=== PATIENT | female | born 1950 | race American Indian/Alaskan Native ===

== ENCOUNTER 2018-08-27 19:45 | Emergency (ER) | payer MEDICARE, MEDICAID ==
[~2018-08-27] VITALS: Ht 165.1 cm; Wt 98.0 kg
[~2018-08-27 19:45] MED LIST: ALBU18HF2 INH; AMIT-50 PO; ASCO500C15 PO; ATOR40TA PO; CLIN150C8 PO; COL100C PO; HYDR-3686 PO; LEVO150T8 PO; MULT-38 PO; PARO20TA6 PO; ZES10T PO
[2018-08-27 19:53] VITALS: BP 111/69
[2018-08-27] MEDS ORDERED: predniSONE 20 mg tablet PO ONE (20:45)
[2018-08-27] MEDS ORDERED: ipratropium/albuterol 3ml nebule NEB ONE (20:45)
[2018-08-27] MEDS ORDERED: AZIT250T2 PO (20:46)
[2018-08-27] MEDS ORDERED: ALBU6.7H INH (20:46)
[2018-08-27] MEDS ORDERED: PRED20TA PO (20:46)
[2018-08-27] MEDS ORDERED: ketorolac trometh inj. 60 MG/2 ML VIAL IM ONE (21:35)
[2018-08-28] MEDS ORDERED: BUSP5TAB3 PO (21:23)
[2018-08-28] MEDS ORDERED: HYDR-4353 PO (21:23)
[2018-08-29] MEDS ORDERED: CHOL400T14 PO (11:45)
[2018-08-29] MEDS ORDERED: VITA400C19 PO (11:45)
[2018-08-29] MEDS ORDERED: IBUP-1985 PO (11:46)
[2018-08-29] MEDS ORDERED: HYDR-3973 PO (11:46)
[2018-08-29] MEDS ORDERED: ALBU18HF2 INH (11:47)
== END 2018-08-27 22:10 | disposition home or self-care (01) ==
LOC: ER 19:45
DX: J40 Bronchitis, not specified as acute or chronic (principal); E11.9 Type 2 diabetes mellitus without complications; G89.29 Other chronic pain; F17.210 Nicotine dependence, cigarettes, uncomplicated; Z59.0 Homelessness; Z98.890 Other specified postprocedural states; Z87.01 Personal history of pneumonia (recurrent); Z79.899 Other long term (current) drug therapy; Z88.0 Allergy status to penicillin; Z88.5 Allergy status to narcotic agent; Z88.8 Allergy status to other drugs, medicaments and biological substances
CPT/HCPCS: 94640; 94760; 96372; 99284; J1885; J7512

== ENCOUNTER 2019-01-03 18:24 | Emergency (ER) | payer MEDICARE, MEDICAID ==
[~2019-01-03] VITALS: Ht 165.1 cm; Wt 101.0 kg
[~2019-01-03 18:24] MED LIST changes: -AMIT-50 PO; +BENZ-16 PO; +CHOL400T14 PO; -CLIN150C8 PO; -HYDR-3686 PO; +HYDR-3973 PO; +IBUP-1985 PO; +LACT1CAP26 PO; +LINE600T14 PO; -PARO20TA6 PO; +VITA400C19 PO; -ZES10T PO
[2019-01-03 20:32] VITALS: BP 108/62
[2019-01-03 20:36] LABS: ALANINE AMINOTRANSFERASE 31 U/L (12-78); ALBUMIN/GLOBULIN RATIO 0.9 (1.1-1.5); ALKALINE PHOSPHATASE 88 IU/L (46-116); ANION GAP 8 (8-16); ASPARTATE AMINO TRANSFERASE 10 U/L (10-37); BILIRUBIN,TOTAL 0.1 MG/DL (0.1-1.0); BLOOD UREA NITROGEN 13 MG/DL (7-18); BUN/CREATININE RATIO 13.1 (6.6-38.0); CALCIUM 10.3 MG/DL (8.5-10.1); CHLORIDE 110 MMOL/L (99-107); CREATININE 0.99 MG/DL (0.40-0.90); POTASSIUM 4.3 MMOL/L (3.5-5.1); SODIUM 142 MMOL/L (135-145); TOTAL CARBON DIOXIDE 23.6 MMOL/L (24-32); TOTAL PROTEIN 6.5 G/DL (6.4-8.2); eGFR 56 ML/MIN
[2019-01-03 20:40] LABS: GLUCOSE 96 MG/DL (70-104)
[2019-01-03 20:49] LABS: BASOPHILS # (AUTO) 0.1 X10'3 (0-0.2); BASOPHILS % (AUTO) 0.8 % (0-1); EOSINOPHILS # (AUTO) 0.4 X10'3 (0-0.9); EOSINOPHILS % (AUTO) 5.6 % (0-6); HEMATOCRIT 42.2 % (35.0-45.0); LYMPHOCYTES # (AUTO) 2.3 X10'3 (1.1-4.8); LYMPHOCYTES % (AUTO) 33.9 % (21-51); MEAN CORPUSCULAR HEMOGLOBIN 29.3 PG (27.0-31.0); MEAN CORPUSCULAR HGB CONC 33.2 g/dL (33.0-36.5); MEAN CORPUSCULAR VOLUME 88.5 FL (78-98); MEAN PLATELET VOLUME 10.1 FL (7.4-10.4); MONOCYTES # (AUTO) 0.3 X10'3 (0-0.9); MONOCYTES % (AUTO) 5.1 % (2-12); NEUTROPHILS # (AUTO) 3.7 X10'3 (1.8-7.7); NEUTROPHILS % (AUTO) 54.6 % (42-75); PLATELET COUNT 205 X10'3 (140-440); RED BLOOD COUNT 4.77 X10'6 (4.20-5.60); RED CELL DISTRIBUTION WIDTH 13.6 % (11.5-14.5); WHITE BLOOD COUNT 6.8 X10'3 (4.5-11.0)
[2019-01-03] MEDS ORDERED: DOXY100C2 PO (21:02)
[2019-01-03] MEDS ORDERED: DOXYCYCLINE 100MG CAPSULE PO STA (21:10)
== END 2019-01-03 21:21 | disposition home or self-care (01) ==
LOC: ER 18:25
DX: L03.116 Cellulitis of left lower limb (principal); J44.9 Chronic obstructive pulmonary disease, unspecified; E11.9 Type 2 diabetes mellitus without complications; E07.9 Disorder of thyroid, unspecified; G89.29 Other chronic pain; Z87.442 Personal history of urinary calculi; Z98.890 Other specified postprocedural states; Z59.0 Homelessness; Z88.0 Allergy status to penicillin; Z88.5 Allergy status to narcotic agent; Z88.6 Allergy status to analgesic agent; Z79.2 Long term (current) use of antibiotics; Z79.899 Other long term (current) drug therapy
CPT/HCPCS: 36415; 80053; 83605; 85025; 99284

== ENCOUNTER 2019-12-24 16:32 | Emergency (ER) | payer MEDICARE, MEDICAID ==
[~2019-12-24] VITALS: Ht 163.8 cm; Wt 94.0 kg
[2019-12-24 19:21] VITALS: BP 29/83
[2019-12-24] MEDS ORDERED: CEPH-572 PO (20:08)
== END 2019-12-24 20:10 | disposition home or self-care (01) ==
LOC: ER 16:33
DX: L72.3 Sebaceous cyst (principal); J44.9 Chronic obstructive pulmonary disease, unspecified; E11.9 Type 2 diabetes mellitus without complications; G89.29 Other chronic pain; Z85.9 Personal history of malignant neoplasm, unspecified; Z60.2 Problems related to living alone; Z59.0 Homelessness; Z98.890 Other specified postprocedural states; Z88.0 Allergy status to penicillin; Z88.5 Allergy status to narcotic agent; Z79.899 Other long term (current) drug therapy
CPT/HCPCS: 10060; 99283

== ENCOUNTER 2020-11-10 11:09 | Emergency (ER) | payer MEDICARE, MEDICAID ==
[~2020-11-10] VITALS: Ht 163.8 cm; Wt 100.0 kg
[~2020-11-10 11:09] MED LIST changes: -ASCO500C15 PO; +ASCO500C18 PO; +CEPH-572 PO; +VITA-336 PO; -VITA400C19 PO
[2020-11-10 11:27] VITALS: BP 115/89
[2020-11-10] MEDS ORDERED: acetaminophen 325mg tablet PO ONE (12:10)
== END 2020-11-10 12:41 | disposition home or self-care (01) ==
LOC: ER 11:10
DX: R10.30 Lower abdominal pain, unspecified (principal); G89.29 Other chronic pain; J44.9 Chronic obstructive pulmonary disease, unspecified; E11.9 Type 2 diabetes mellitus without complications; Z87.442 Personal history of urinary calculi; Z87.01 Personal history of pneumonia (recurrent); Z85.9 Personal history of malignant neoplasm, unspecified; Z98.890 Other specified postprocedural states; Z60.2 Problems related to living alone; Z88.0 Allergy status to penicillin; Z88.5 Allergy status to narcotic agent; Z88.8 Allergy status to other drugs, medicaments and biological substances; Z79.2 Long term (current) use of antibiotics; Z79.899 Other long term (current) drug therapy
CPT/HCPCS: 99284

== ENCOUNTER 2020-12-27 11:19 | Day surgery (SDC) | payer MEDICARE, MEDICAID ==
[2020-12-08 13:53] LABS: BASOPHILS % (AUTO) 0.5 % (0-1); EOSINOPHILS # (AUTO) 0.2 X10'3 (0-0.9); EOSINOPHILS % (AUTO) 3.3 % (0-6); HEMATOCRIT 49.3 % (35.0-45.0); LYMPHOCYTES # (AUTO) 1.1 X10'3 (1.1-4.8); MEAN CORPUSCULAR HGB CONC 32.5 g/dL (33.0-36.5); MEAN CORPUSCULAR VOLUME 89.2 FL (78-98); MEAN PLATELET VOLUME 10.4 FL (7.4-10.4); MONOCYTES # (AUTO) 0.4 X10'3 (0-0.9); MONOCYTES % (AUTO) 4.8 % (2-12); NEUTROPHILS # (AUTO) 5.6 X10'3 (1.8-7.7); NEUTROPHILS % (AUTO) 76.4 % (42-75); PLATELET COUNT 153 X10'3 (140-440); RED BLOOD COUNT 5.53 X10'6 (4.20-5.60); RED CELL DISTRIBUTION WIDTH 14.3 % (11.5-14.5); WHITE BLOOD COUNT 7.3 X10'3 (4.5-11.0)
[2020-12-08 13:59] LABS: ALBUMIN 3.5 G/DL (3.4-5.0); ANION GAP 10 (8-16); BLOOD UREA NITROGEN 16 MG/DL (7-18); BUN/CREATININE RATIO 13.1 (6.6-38.0); CALCIUM 10.4 MG/DL (8.5-10.1); CHLORIDE 108 MMOL/L (99-107); CREATININE 1.22 MG/DL (0.40-0.90); GLUCOSE 161 MG/DL (70-104); POTASSIUM 3.9 MMOL/L (3.5-5.1); SODIUM 142 MMOL/L (135-145); TOTAL CARBON DIOXIDE 23.7 MMOL/L (24-32); eGFR 44 ML/MIN
[2020-12-08 14:03] LABS: PARTIAL THROMBOPLASTIN TIME 25 SECONDS (22-32)
[2020-12-27] VITALS (9 sets, daily range): BP systolic 101–128; BP diastolic 54–88
[~2020-12-27] VITALS: Ht 165.1 cm; Wt 100.9 kg
[2020-12-27] MEDS ORDERED: verapamil 2.5 mg/ml inj IV ONE (12:19)
[2020-12-27] MEDS ORDERED: midazolam 1 mg/ML 2ml injection ONE ×2 (12:19→13:35)
[2020-12-27] MEDS ORDERED: nitroGLYCERIN-Tridil 50MG/D5W 250 ML IV ONE (12:20)
[2020-12-27] MEDS ORDERED: iohexol 350MG/ML 100ml bottle IV ONE (12:20)
[2020-12-27] MEDS ORDERED: heparin 1,000unit/ml 10ml vial 10 ML ONE (12:20)
[2020-12-27] MEDS ORDERED: fentaNYL/PF 50MCG/1 ML 2ML syringe ONE (12:20)
[2020-12-27] MEDS ORDERED: LIDOcaine 1% (10mg/ml)w/preservative injection 20ml MDV ONE (12:20)
[2020-12-27] MEDS ORDERED: diphenhydrAMINE 25mg capsule PO PRN (12:35)
[2020-12-27] MEDS ORDERED: LORazepam 0.5 MG tablet PO PRN (12:35)
[2020-12-27] MEDS ORDERED: normal saline 1,000 ML IV SCH (12:35)
[2020-12-27 12:40] LABS: BASOPHILS # (AUTO) 0.1 X10'3 (0-0.2); BASOPHILS % (AUTO) 0.7 % (0-1); EOSINOPHILS # (AUTO) 0.2 X10'3 (0-0.9); EOSINOPHILS % (AUTO) 2.2 % (0-6); HEMATOCRIT 46.9 % (35.0-45.0); HEMOGLOBIN 15.3 g/dl (12.0-16.0); LYMPHOCYTES # (AUTO) 1.5 X10'3 (1.1-4.8); LYMPHOCYTES % (AUTO) 18.9 % (21-51); MEAN CORPUSCULAR HEMOGLOBIN 29.3 PG (27.0-31.0); MEAN CORPUSCULAR HGB CONC 32.7 g/dL (33.0-36.5); MEAN CORPUSCULAR VOLUME 89.5 FL (78-98); MONOCYTES # (AUTO) 0.5 X10'3 (0-0.9); MONOCYTES % (AUTO) 6.5 % (2-12); NEUTROPHILS # (AUTO) 5.8 X10'3 (1.8-7.7); NEUTROPHILS % (AUTO) 71.7 % (42-75); PLATELET COUNT 173 X10'3 (140-440); RED BLOOD COUNT 5.24 X10'6 (4.20-5.60); RED CELL DISTRIBUTION WIDTH 14.3 % (11.5-14.5); WHITE BLOOD COUNT 8.1 X10'3 (4.5-11.0)
[2020-12-27 12:49] LABS: ALBUMIN 3.3 G/DL (3.4-5.0); ANION GAP 10 (8-16); BLOOD UREA NITROGEN 19 MG/DL (7-18); BUN/CREATININE RATIO 17.3 (6.6-38.0); CALCIUM 9.7 MG/DL (8.5-10.1); CHLORIDE 108 MMOL/L (99-107); GLUCOSE 91 MG/DL (70-104); POTASSIUM 4.4 MMOL/L (3.5-5.1); SODIUM 143 MMOL/L (135-145); TOTAL CARBON DIOXIDE 25.3 MMOL/L (24-32); eGFR 49 ML/MIN
[2020-12-27 12:52] LABS: PARTIAL THROMBOPLASTIN TIME 24 SECONDS (22-32)
[2020-12-27] MEDS ORDERED: LIDOcaine/PRILOcaine 5gm cream TP ONE (13:00)
[2020-12-27] MEDS ORDERED: PARO30TA4 PO (13:08)
[2020-12-27] MEDS ORDERED: OXYC10TA47 PO (13:08)
[2020-12-27] MEDS ORDERED: ALBU18HF2 (13:08)
[2020-12-27] MEDS ORDERED: CYCL-1 PO (13:08)
[2020-12-27] MEDS ORDERED: LEVO137T19 PO (13:08)
[2020-12-27] MEDS ORDERED: TRAZ-251 PO (13:08)
[2020-12-27] MEDS ORDERED: ondansetron/PF 4mg/2ml inj IV PRN (14:10)
[2020-12-27] MEDS ORDERED: proCHLORperazine 10 MG/2 ml inj IV PRN (14:10)
[2020-12-27] MEDS ORDERED: OXAZEpam 15mg capsule PO PRN (14:10)
[2020-12-27] MEDS ORDERED: nitroGLYCERIN 0.4mg SUBLingual tab SL PRN (14:10)
== END 2020-12-27 17:00 | disposition home or self-care (01) ==
LOC: SSTAY O 11:19
PROVIDERS: ATTEND Internal Medicine Interventional Cardiology
DX: R94.39 Abnormal result of other cardiovascular function study (principal); R07.89 Other chest pain; I25.10 Atherosclerotic heart disease of native coronary artery without angina pectoris; J44.9 Chronic obstructive pulmonary disease, unspecified; E03.9 Hypothyroidism, unspecified; E66.9 Obesity, unspecified; Z68.37 Body mass index [BMI] 37.0-37.9, adult; E83.52 Hypercalcemia; E78.5 Hyperlipidemia, unspecified; F17.210 Nicotine dependence, cigarettes, uncomplicated; Z88.0 Allergy status to penicillin; Z88.5 Allergy status to narcotic agent; Z88.8 Allergy status to other drugs, medicaments and biological substances; Z79.899 Other long term (current) drug therapy; Z79.01 Long term (current) use of anticoagulants
CPT/HCPCS: 36415; 80048; 85025; 85610; 85730; 93005; 93458; 99152; C1769; C1894; J1644; J2001; J2250; J3010; J7030; Q0163; Q9967; 99153; A4620; J3490

== ENCOUNTER 2021-12-09 03:10 | Emergency (ER) | payer BC, MEDICAID ==
[~2021-12-09] VITALS: Ht 165.1 cm; Wt 94.5 kg
[~2021-12-09 03:10] MED LIST changes: +ALBU18HF2; -ALBU18HF2 INH; -ASCO500C18 PO; -BENZ-16 PO; -CEPH-572 PO; -CHOL400T14 PO; -COL100C PO; +CYCL-1 PO; -HYDR-3973 PO; -IBUP-1985 PO; -LACT1CAP26 PO; +LEVO137T19 PO; -LEVO150T8 PO; -LINE600T14 PO; -MULT-38 PO; +OXYC10TA47 PO; +PARO30TA4 PO; +TRAZ-251 PO; -VITA-336 PO
[2021-12-09] MEDS ORDERED: predniSONE 20 mg tablet PO ONE (03:35)
[2021-12-09] MEDS ORDERED: ipratropium/albuterol 3ml nebule NEB PRN (03:35)
[2021-12-09 03:37] VITALS: BP 174/98
[2021-12-09 04:09] LABS: BASOPHILS # (AUTO) 0.1 X10'3 (0-0.2); BASOPHILS % (AUTO) 0.9 % (0-1); EOSINOPHILS # (AUTO) 0.5 X10'3 (0-0.9); EOSINOPHILS % (AUTO) 6.2 % (0-6); HEMATOCRIT 43.8 % (35.0-45.0); HEMOGLOBIN 14.5 g/dl (12.0-16.0); LYMPHOCYTES # (AUTO) 2.2 X10'3 (1.1-4.8); LYMPHOCYTES % (AUTO) 26.3 % (21-51); MEAN CORPUSCULAR HEMOGLOBIN 29.1 PG (27.0-31.0); MEAN CORPUSCULAR HGB CONC 33.1 g/dL (33.0-36.5); MEAN PLATELET VOLUME 9.6 FL (7.4-10.4); MONOCYTES # (AUTO) 0.5 X10'3 (0-0.9); MONOCYTES % (AUTO) 6.1 % (2-12); NEUTROPHILS % (AUTO) 60.5 % (42-75); PLATELET COUNT 156 X10'3 (140-440); RED BLOOD COUNT 4.97 X10'6 (4.20-5.60); RED CELL DISTRIBUTION WIDTH 13.5 % (11.5-14.5); WHITE BLOOD COUNT 8.2 X10'3 (4.5-11.0)
[2021-12-09 04:21] LABS: ALANINE AMINOTRANSFERASE 24 U/L (12-78); ALBUMIN/GLOBULIN RATIO 0.7 (1.1-1.5); ALKALINE PHOSPHATASE 97 IU/L (46-116); ANION GAP 14 (8-16); ASPARTATE AMINO TRANSFERASE 21 U/L (10-37); BILIRUBIN,TOTAL 0.3 MG/DL (0.1-1.0); BLOOD UREA NITROGEN 15 MG/DL (7-18); CALCIUM 8.7 MG/DL (8.5-10.1); CHLORIDE 107 MMOL/L (99-107); CREATININE 1.07 MG/DL (0.40-0.90); GLUCOSE 124 MG/DL (70-104); POTASSIUM 3.2 MMOL/L (3.5-5.1); SODIUM 145 MMOL/L (135-145); TOTAL CARBON DIOXIDE 23.7 MMOL/L (24-32); TOTAL PROTEIN 7.1 G/DL (6.4-8.2); eGFR 51 ML/MIN
[2021-12-09] MEDS ORDERED: ipratropium/albuterol 3ml nebule NEB STA (04:45)
[2021-12-09] MEDS ORDERED: POTASSIUM BICARB 20meq eff tab 20 MEQ TABLET.EFF PO SCH (04:50)
[2021-12-09] MEDS ORDERED: NEBU1KIT3 MC (05:55)
[2021-12-09] MEDS ORDERED: PRED20TA PO (05:55)
[2021-12-09] MEDS ORDERED: IPRA3AMP31 IH (05:55)
[2021-12-09] MEDS ORDERED: AZIT250T81 PO (05:55)
[2021-12-09] MEDS ORDERED: FURO-150 PO (06:07)
== END 2021-12-09 06:40 | disposition home or self-care (01) ==
LOC: ER 03:10
DX: R06.02 Shortness of breath (principal); R60.0 Localized edema; E11.9 Type 2 diabetes mellitus without complications; G89.29 Other chronic pain; M54.9 Dorsalgia, unspecified; E07.9 Disorder of thyroid, unspecified; Z87.442 Personal history of urinary calculi; Z88.0 Allergy status to penicillin; Z88.5 Allergy status to narcotic agent; Z79.899 Other long term (current) drug therapy; Z79.2 Long term (current) use of antibiotics
CPT/HCPCS: 36415; 71045; 80053; 83880; 84484; 85025; 93005; 94640; 99285; J7512

== ENCOUNTER 2022-10-26 15:33 | Emergency (ER) | payer MEDICARE, MEDICAID ==
[~2022-10-26] VITALS: Ht 167.6 cm; Wt 98.0 kg
[~2022-10-26 15:33] MED LIST changes: +FURO-150 PO; +IPRA3AMP31 IH; +NEBU1KIT3 MC
[2022-10-26 15:49] VITALS: BP 137/77
[2022-10-26] MEDS ORDERED: acetaminophen 325mg tablet PO ONE (16:00)
== END 2022-10-26 17:03 | disposition home or self-care (01) ==
LOC: ER 15:34
DX: S92.411A Displaced fracture of proximal phalanx of right great toe, initial encounter for closed fracture (principal); E11.9 Type 2 diabetes mellitus without complications; Z88.0 Allergy status to penicillin; Z87.442 Personal history of urinary calculi; Z88.5 Allergy status to narcotic agent; Z79.899 Other long term (current) drug therapy; J44.9 Chronic obstructive pulmonary disease, unspecified; Z88.8 Allergy status to other drugs, medicaments and biological substances; W18.39XA Other fall on same level, initial encounter; Y93.89 Activity, other specified; Y92.89 Other specified places as the place of occurrence of the external cause; Y99.8 Other external cause status
CPT/HCPCS: 73610; 73630; 99284; L4360

== ENCOUNTER 2023-03-15 17:30 | Emergency (ER) | payer MEDICARE, MEDICAID ==
[~2023-03-15] VITALS: Ht 165.1 cm; Wt 98.2 kg
[2023-03-15 18:11] VITALS: BP 149/93; PULSE 62; RESP 16; TEMP 97.9; O2SAT 93
== END 2023-03-16 01:20 | disposition left against medical advice (07) ==
LOC: ER 17:31
DX: R05.9 Cough, unspecified (principal); Z53.21 Procedure and treatment not carried out due to patient leaving prior to being seen by health care provider
CPT/HCPCS: 99281

== ENCOUNTER 2023-08-05 17:58 | Inpatient (IN) | payer MEDICARE, MEDICAID ==
[~2023-08-05] VITALS: Ht 165.1 cm; Wt 97.7 kg
[2023-08-05 19:58] LABS: BILIRUBIN,URINE NEGATIVE (Neg); CLARITY,URINE CLOUDY (Clear); COLOR,URINE YELLOW (Yellow); GLUCOSE, URINE NEGATIVE (Neg); KETONES,URINE TRACE mg/dl (Neg); LEUKOCYTE ESTERASE ,URINE NEGATIVE (Neg); NITRITES, URINE NEGATIVE (Neg); OCCULT BLOOD,URINE NEGATIVE (Neg); PROTEIN,URINE 100 mg/dl (Neg); UROBILINOGEN,URINE 0.2 E.U/dL (0.2-1.0)
[2023-08-05 20:15] LABS: UA COLLECTION TYPE CLN CATCH MIDSTREAM
[2023-08-05 20:16] LABS: MUCUS STRANDS FEW /LPF (Neg); SQUAMOUS EPITHELIAL CELL,UR MODERATE /LPF (FEW)
[2023-08-05 20:17] LABS: CAL OXALATE CRYSTALS 4+ /HPF (NEGATIVE)
[2023-08-05 20:18] LABS: BACTERIA,URINE FEW /HPF (Neg); RBC,URINE 0-2 /HPF (0-2); WBC,URINE 0-4 /HPF (0-4)
[2023-08-05 20:21] LABS: BASOPHILS % (AUTO) 0.6 % (0-1); EOSINOPHILS # (AUTO) 0.2 X10'3 (0-0.9); EOSINOPHILS % (AUTO) 2.7 % (0-6); HEMATOCRIT 40.3 % (35.0-45.0); HEMOGLOBIN 13.3 g/dl (12.0-16.0); LYMPHOCYTES # (AUTO) 1.9 X10'3 (1.1-4.8); LYMPHOCYTES % (AUTO) 26.2 % (21-51); MEAN CORPUSCULAR HEMOGLOBIN 29.2 PG (27.0-31.0); MEAN CORPUSCULAR HGB CONC 32.9 g/dL (33.0-36.5); MEAN CORPUSCULAR VOLUME 88.5 FL (78-98); MEAN PLATELET VOLUME 8.9 FL (7.4-10.4); MONOCYTES # (AUTO) 0.7 X10'3 (0-0.9); MONOCYTES % (AUTO) 9.9 % (2-12); NEUTROPHILS # (AUTO) 4.3 X10'3 (1.8-7.7); NEUTROPHILS % (AUTO) 60.6 % (42-75); PLATELET COUNT 200 X10'3 (140-440); RED BLOOD COUNT 4.55 X10'6 (4.20-5.60); RED CELL DISTRIBUTION WIDTH 14.7 % (11.5-14.5); WHITE BLOOD COUNT 7.1 X10'3 (4.5-11.0)
[2023-08-05 20:36] LABS: APTT 25 SECONDS (22-32); PROTHROMBIN TIME 10.3 SECONDS (9.0-12.0)
[2023-08-05 20:40] LABS: ALANINE AMINOTRANSFERASE 18 U/L (12-78); ALBUMIN 2.6 G/DL (3.4-5.0); ALBUMIN/GLOBULIN RATIO 0.8 (1.1-1.5); ALKALINE PHOSPHATASE 105 IU/L (46-116); ANION GAP 9 (8-16); ASPARTATE AMINO TRANSFERASE 26 U/L (10-37); BILIRUBIN,TOTAL 0.2 MG/DL (0.1-1.0); BLOOD UREA NITROGEN 11 MG/DL (7-18); BUN/CREATININE RATIO 9.9 (10.0-20.0); CALCIUM 7.8 MG/DL (8.5-10.1); CHLORIDE 112 MMOL/L (99-107); CREATININE 1.11 MG/DL (0.40-0.90); GLUCOSE 92 MG/DL (70-104); LIPASE 25 U/L (16-77); POTASSIUM 3.2 MMOL/L (3.5-5.1); SODIUM 144 MMOL/L (135-145); TOTAL CARBON DIOXIDE 23.4 MMOL/L (24-32); eCRCL 42 ML/MIN; eGFR 48 ML/MIN
[2023-08-05] MEDS: acetaminophen 325mg tablet PO ONE (21:03)
[2023-08-05] MEDS: potassium Cl 20 mEq SR tablet PO STA (22:24)
[2023-08-05] MEDS: CefTRIAXone/D5W-Rocephin 1gm 50 ML IV ONE (22:24)
[2023-08-05] MEDS ORDERED: ondansetron/PF 4mg/2ml inj IV PRN (22:45)
[2023-08-05] MEDS ORDERED: potassium Cl 20 mEq SR tablet PO PRN (22:45)
[2023-08-05] MEDS ORDERED: magnesium 2GM in 50ml NS 50 ML IV PRN (22:45)
[2023-08-05] MEDS ORDERED: magnesium Cl slow-release 64mg tablet PO PRN (22:45)
[2023-08-05] MEDS ORDERED: magnesium hydroxide 30ml (MOM) UD suspension PO PRN (22:45)
[2023-08-05] MEDS ORDERED: potassium Cl 40MEQ/1/2NS 520ml 520 ML IV PRN (22:45)
[2023-08-05] MEDS ORDERED: mag hydrox/Alum hydrox/simeth 30ml oral suspension PO PRN (22:45)
[2023-08-05] MEDS ORDERED: magnesium 4gm in 100ml NS 100 ML IV PRN (22:45)
[2023-08-05 23:46] LABS: HEMOGLOBIN A1C 5.7 % (4.5-6.2)
[2023-08-05 23:50] LABS: C-REACTIVE PROTEIN 1.75 MG/DL (0.0-0.5); MAGNESIUM 1.5 MG/DL (1.5-2.4); POTASSIUM 3.4 MMOL/L (3.5-5.1)
[2023-08-06] MEDS: normal saline 1000ml 1,000 ML IV SCH (00:12)
[2023-08-06] MEDS: metroNIDAZOLE-Flagyl 500mg/NS 100 ML IV ONE (00:12)
[2023-08-06] MEDS: docusate sod 100mg capsule PO SCH (07:40)
[2023-08-06] MEDS: K and/or MAG REPLACEMENT MC SCH (07:40)
[2023-08-06] MEDS: levoFLOXACIN-Levaquin 750MG/D5 150 ML IV SCH (07:50)
[2023-08-06] MEDS: hydrALAZINE 20mg/ml inj. IV PRN (07:50)
[2023-08-06] MEDS: morphine 2 MG/ML inj. syringe IV PRN (07:51)
[2023-08-06] MEDS: heparin, porcine 5000 units/ml vial SQ SCH (07:51)
[2023-08-06 09:48] LABS: ALANINE AMINOTRANSFERASE 17 U/L (12-78); ALBUMIN 2.7 G/DL (3.4-5.0); ALBUMIN/GLOBULIN RATIO 0.7 (1.1-1.5); ALKALINE PHOSPHATASE 108 IU/L (46-116); ANION GAP 8 (8-16); ASPARTATE AMINO TRANSFERASE 19 U/L (10-37); BILIRUBIN,TOTAL 0.2 MG/DL (0.1-1.0); BLOOD UREA NITROGEN 8 MG/DL (7-18); BUN/CREATININE RATIO 7.5 (10.0-20.0); CALCIUM 8.7 MG/DL (8.5-10.1); CHLORIDE 111 MMOL/L (99-107); CHOL/HDL RATIO 2.6 (0.00-4.99); CHOLESTEROL 126 MG/DL (0-200); CREATININE 1.07 MG/DL (0.40-0.90); GLUCOSE 157 MG/DL (70-104); HDL CHOLESTEROL 49 MG/DL (35-60); LDL CHOLESTEROL 56 MG/DL (50-100); MAGNESIUM 1.6 MG/DL (1.5-2.4); POTASSIUM 3.6 MMOL/L (3.5-5.1); SODIUM 144 MMOL/L (135-145); TOTAL CARBON DIOXIDE 24.9 MMOL/L (24-32); TOTAL PROTEIN 6.7 G/DL (6.4-8.2); TRIGLYCERIDES 104 MG/DL (20-135); eCRCL 43 ML/MIN; eGFR 51 ML/MIN
[2023-08-06 09:56] LABS: BASOPHILS % (AUTO) 0.7 % (0-1); EOSINOPHILS # (AUTO) 0.2 X10'3 (0-0.9); EOSINOPHILS % (AUTO) 3.2 % (0-6); HEMATOCRIT 42.7 % (35.0-45.0); HEMOGLOBIN 14.1 g/dl (12.0-16.0); LYMPHOCYTES # (AUTO) 1.8 X10'3 (1.1-4.8); LYMPHOCYTES % (AUTO) 25.1 % (21-51); MEAN CORPUSCULAR HEMOGLOBIN 28.9 PG (27.0-31.0); MEAN CORPUSCULAR VOLUME 87.5 FL (78-98); MEAN PLATELET VOLUME 9.3 FL (7.4-10.4); MONOCYTES # (AUTO) 0.4 X10'3 (0-0.9); MONOCYTES % (AUTO) 5.3 % (2-12); NEUTROPHILS # (AUTO) 4.7 X10'3 (1.8-7.7); NEUTROPHILS % (AUTO) 65.7 % (42-75); PLATELET COUNT 234 X10'3 (140-440); RED BLOOD COUNT 4.88 X10'6 (4.20-5.60); RED CELL DISTRIBUTION WIDTH 15.3 % (11.5-14.5); WHITE BLOOD COUNT 7.1 X10'3 (4.5-11.0)
[2023-08-06] MEDS: ringers solution, lacted 1,000 ML IV ONE (10:06)
[2023-08-06 10:24] LABS: C DIFF ANTIGEN NEGATIVE (NEGATIVE); C DIFF SPECIMEN=DIARRHEA? ACCEPTABLE; C DIFFICILE TOXINS A&B NEGATIVE (Neg)
[2023-08-06 13:00] VITALS: BP 160/82; PULSE 69; RESP 18; TEMP 98.2; O2SAT 96
[2023-08-06 18:10] VITALS: BP 149/73; PULSE 72; RESP 18; TEMP 98.6; O2SAT 95
[2023-08-06 20:20] VITALS: RESP 18; O2SAT 95
[2023-08-06 22:00] VITALS: BP 157/75; PULSE 70; RESP 20; TEMP 98.8; O2SAT 98
[2023-08-07 01:44] LABS: OCCULT BLOOD STOOL NEGATIVE (Neg)
[2023-08-07 06:00] VITALS: BP 172/86; PULSE 78; RESP 16; TEMP 97.7; O2SAT 94
[2023-08-07 07:00] VITALS: RESP 16; O2SAT 78
[2023-08-07 07:36] LABS: BASOPHILS # (AUTO) 0.1 X10'3 (0-0.2); BASOPHILS % (AUTO) 0.6 % (0-1); EOSINOPHILS # (AUTO) 0.2 X10'3 (0-0.9); EOSINOPHILS % (AUTO) 2.6 % (0-6); HEMATOCRIT 45.5 % (35.0-45.0); HEMOGLOBIN 14.8 g/dl (12.0-16.0); LYMPHOCYTES # (AUTO) 2.1 X10'3 (1.1-4.8); LYMPHOCYTES % (AUTO) 26.4 % (21-51); MEAN CORPUSCULAR HGB CONC 32.6 g/dL (33.0-36.5); MEAN CORPUSCULAR VOLUME 88.9 FL (78-98); MEAN PLATELET VOLUME 9.7 FL (7.4-10.4); MONOCYTES # (AUTO) 0.6 X10'3 (0-0.9); MONOCYTES % (AUTO) 7.2 % (2-12); NEUTROPHILS % (AUTO) 63.2 % (42-75); PLATELET COUNT 228 X10'3 (140-440); RED BLOOD COUNT 5.12 X10'6 (4.20-5.60); RED CELL DISTRIBUTION WIDTH 15.5 % (11.5-14.5)
[2023-08-07 09:18] LABS: ALANINE AMINOTRANSFERASE 18 U/L (12-78); ALBUMIN 2.7 G/DL (3.4-5.0); ALBUMIN/GLOBULIN RATIO 0.7 (1.1-1.5); ALKALINE PHOSPHATASE 108 IU/L (46-116); ANION GAP 8 (8-16); ASPARTATE AMINO TRANSFERASE 21 U/L (10-37); BILIRUBIN,TOTAL 0.2 MG/DL (0.1-1.0); BLOOD UREA NITROGEN 8 MG/DL (7-18); BUN/CREATININE RATIO 8.3 (10.0-20.0); CALCIUM 8.8 MG/DL (8.5-10.1); CHLORIDE 112 MMOL/L (99-107); CREATININE 0.96 MG/DL (0.40-0.90); GLUCOSE 117 MG/DL (70-104); MAGNESIUM 1.6 MG/DL (1.5-2.4); POTASSIUM 3.4 MMOL/L (3.5-5.1); SODIUM 145 MMOL/L (135-145); TOTAL CARBON DIOXIDE 24.7 MMOL/L (24-32); TOTAL PROTEIN 6.5 G/DL (6.4-8.2); eCRCL 48 ML/MIN; eGFR 57 ML/MIN
[2023-08-07] MEDS: potassium Cl 20 mEq SR tablet PO PRN (09:28)
[2023-08-07 10:00] VITALS: BP 145/69; PULSE 65; RESP 19; TEMP 98.3; O2SAT 94
[2023-08-07] MEDS: diphenhydrAMINE 50 mg/ml inj IV PRN (13:34)
[2023-08-07] MEDS: methylPREDNISolone sod succ 125mg/2ml vial IV SCH (13:43)
[2023-08-07 18:00] VITALS: BP 150/70; PULSE 70; RESP 16; TEMP 98.1; O2SAT 97
[2023-08-07] MEDS: acetaminophen 325mg tablet PO PRN (19:16)
[2023-08-07 20:10] VITALS: RESP 16; O2SAT 97
[2023-08-07 20:50] VITALS: BP 145/82; PULSE 82; RESP 24; TEMP 98.6; O2SAT 96
[2023-08-08] VITALS (7 sets, daily range): BP systolic 128–158; BP diastolic 63–87; PULSE 64–76; RESP 14–20; TEMP 97.9–98.9; O2SAT 95–97
[2023-08-08 02:24] LABS: BASOPHILS % (AUTO) 0.2 % (0-1); EOSINOPHILS % (AUTO) 0 % (0-6); HEMATOCRIT 42.3 % (35.0-45.0); HEMOGLOBIN 13.8 g/dl (12.0-16.0); LYMPHOCYTES # (AUTO) 0.7 X10'3 (1.1-4.8); LYMPHOCYTES % (AUTO) 9.1 % (21-51); MEAN CORPUSCULAR HEMOGLOBIN 28.7 PG (27.0-31.0); MEAN CORPUSCULAR HGB CONC 32.5 g/dL (33.0-36.5); MEAN CORPUSCULAR VOLUME 88.1 FL (78-98); MEAN PLATELET VOLUME 9.3 FL (7.4-10.4); MONOCYTES # (AUTO) 0.1 X10'3 (0-0.9); MONOCYTES % (AUTO) 0.9 % (2-12); NEUTROPHILS # (AUTO) 7.1 X10'3 (1.8-7.7); NEUTROPHILS % (AUTO) 89.8 % (42-75); PLATELET COUNT 225 X10'3 (140-440); RED CELL DISTRIBUTION WIDTH 15.2 % (11.5-14.5)
[2023-08-08 03:04] LABS: CHLORIDE 112 MMOL/L (99-107); POTASSIUM 3.7 MMOL/L (3.5-5.1); TOTAL PROTEIN 6.4 G/DL (6.4-8.2)
[2023-08-08 03:50] LABS: ALANINE AMINOTRANSFERASE 16 U/L (12-78); ALBUMIN 2.6 G/DL (3.4-5.0); ALBUMIN/GLOBULIN RATIO 0.7 (1.1-1.5); ALKALINE PHOSPHATASE 88 IU/L (46-116); ANION GAP 13 (8-16); ASPARTATE AMINO TRANSFERASE 14 U/L (10-37); BLOOD UREA NITROGEN 15 MG/DL (7-18); BUN/CREATININE RATIO 14.2 (10.0-20.0); CALCIUM 9.6 MG/DL (8.5-10.1); CREATININE 1.06 MG/DL (0.40-0.90); GLUCOSE 172 MG/DL (70-104); MAGNESIUM 1.8 MG/DL (1.5-2.4); SODIUM 146 MMOL/L (135-145); TOTAL CARBON DIOXIDE 21.3 MMOL/L (24-32); eCRCL 44 ML/MIN; eGFR 51 ML/MIN
[2023-08-08 03:58] LABS: BILIRUBIN,TOTAL 0.1 MG/DL (0.1-1.0)
[2023-08-08] MEDS: diphenhydrAMINE 25mg capsule PO PRN (11:34)
[2023-08-08] MEDS ORDERED: CINA30TA7 PO (11:41)
[2023-08-08] MEDS ORDERED: oxyCODONE IR 5mg (immed. release) tablet PO PRN (11:55)
[2023-08-08] MEDS: cyclobenzaprine 10mg tablet PO SCH (13:00)
[2023-08-08] MEDS: atorvastatin 20mg tablet PO SCH (20:41)
[2023-08-08] MEDS: traZODone 50mg tablet PO SCH (20:41)
[2023-08-09 05:45] VITALS: BP 134/62; PULSE 56; RESP 14; TEMP 97.8; O2SAT 95
[2023-08-09 06:15] LABS: BASOPHILS # (AUTO) 0.1 X10'3 (0-0.2); BASOPHILS % (AUTO) 0.4 % (0-1); EOSINOPHILS % (AUTO) 0 % (0-6); HEMATOCRIT 40.8 % (35.0-45.0); HEMOGLOBIN 13.1 g/dl (12.0-16.0); LYMPHOCYTES # (AUTO) 0.9 X10'3 (1.1-4.8); LYMPHOCYTES % (AUTO) 4.8 % (21-51); MEAN CORPUSCULAR HEMOGLOBIN 28.3 PG (27.0-31.0); MEAN CORPUSCULAR HGB CONC 32.1 g/dL (33.0-36.5); MEAN CORPUSCULAR VOLUME 88.1 FL (78-98); MEAN PLATELET VOLUME 9.4 FL (7.4-10.4); MONOCYTES # (AUTO) 0.2 X10'3 (0-0.9); MONOCYTES % (AUTO) 1.1 % (2-12); NEUTROPHILS # (AUTO) 18.2 X10'3 (1.8-7.7); NEUTROPHILS % (AUTO) 93.7 % (42-75); PLATELET COUNT 228 X10'3 (140-440); RED BLOOD COUNT 4.63 X10'6 (4.20-5.60); RED CELL DISTRIBUTION WIDTH 15.6 % (11.5-14.5); WHITE BLOOD COUNT 19.4 X10'3 (4.5-11.0)
[2023-08-09 06:24] LABS: ALANINE AMINOTRANSFERASE 19 U/L (12-78); ALBUMIN 2.4 G/DL (3.4-5.0); ALBUMIN/GLOBULIN RATIO 0.6 (1.1-1.5); ALKALINE PHOSPHATASE 78 IU/L (46-116); ANION GAP 13 (8-16); ASPARTATE AMINO TRANSFERASE 16 U/L (10-37); BILIRUBIN,TOTAL 0.1 MG/DL (0.1-1.0); BLOOD UREA NITROGEN 21 MG/DL (7-18); BUN/CREATININE RATIO 18.9 (10.0-20.0); CALCIUM 9.2 MG/DL (8.5-10.1); CHLORIDE 112 MMOL/L (99-107); CREATININE 1.11 MG/DL (0.40-0.90); GLUCOSE 175 MG/DL (70-104); SODIUM 146 MMOL/L (135-145); TOTAL CARBON DIOXIDE 20.6 MMOL/L (24-32); TOTAL PROTEIN 6.1 G/DL (6.4-8.2); eCRCL 42 ML/MIN; eGFR 48 ML/MIN
[2023-08-09] MEDS: levoFLOXACIN-Levaquin 750MG/D5 150 ML IV SCH (08:30)
[2023-08-09] MEDS: PARoxetine 20mg tablet PO SCH (08:32)
[2023-08-09] MEDS: cinacalcet 30mg tablet PO SCH (08:32)
[2023-08-09] MEDS: levoTHYROXINE 112mcg tablet PO SCH (08:33)
[2023-08-09] MEDS: levoTHYROXINE 25mcg tablet PO SCH (08:33)
[2023-08-09] MEDS: famotidine/PF 10 mg/ml inj IV SCH (08:34)
[2023-08-09] MEDS: PARoxetine 10mg tablet PO SCH (08:38)
[2023-08-09 10:48] VITALS: BP 177/98; PULSE 68; RESP 16; TEMP 98.2; O2SAT 95
[2023-08-09 10:56] VITALS: BP_SYST 177; PULSE 98
== END 2023-08-09 16:05 | disposition home or self-care (01) | DRG 392 ==
LOC: ER 17:58 → ED HOLD 22:49 → UNDOADMIN 22:49 → ED HOLD 08-06 01:38 → EDBEDREQ 08-06 11:05 → SUR 3N 08-06 12:57 → ED HOLD 08-06 12:57
PROVIDERS: ADMIT Internal Medicine Critical Care Medicine; ATTEND Family Medicine
DX: A09 Infectious gastroenteritis and colitis, unspecified (principal); E11.22 Type 2 diabetes mellitus with diabetic chronic kidney disease; K57.30 Diverticulosis of large intestine without perforation or abscess without bleeding; E87.6 Hypokalemia; E86.0 Dehydration; E66.01 Morbid (severe) obesity due to excess calories; R23.3 Spontaneous ecchymoses; Z68.35 Body mass index [BMI] 35.0-35.9, adult; J44.9 Chronic obstructive pulmonary disease, unspecified; E83.51 Hypocalcemia; E03.9 Hypothyroidism, unspecified; N18.30 Chronic kidney disease, stage 3 unspecified; G89.29 Other chronic pain; M54.9 Dorsalgia, unspecified; F17.210 Nicotine dependence, cigarettes, uncomplicated; Z87.442 Personal history of urinary calculi; Z90.49 Acquired absence of other specified parts of digestive tract; Z88.0 Allergy status to penicillin; Z88.5 Allergy status to narcotic agent; Z79.899 Other long term (current) drug therapy; Z98.891 History of uterine scar from previous surgery
CPT/HCPCS: 36415; 71045; 71250; 74176; 80053; 80061; 81001; 82272; 83036; 83605; 83690; 83735; 84132; 85025; 85610; 85651; 85730; 86140; 87040; 87045; 87046; 87324; 87449; 89055; 96365; 97161; 97530; 99285; G0378; J0360; J0604; J0696; J1200; J1644; J1956; J2270; J2930; J3490; J7030; J7120; Q0163

== ENCOUNTER 2023-08-22 17:22 | Emergency (ER) | payer MEDICARE, MEDICAID ==
[~2023-08-22] VITALS: Ht 165.1 cm; Wt 100.0 kg
[~2023-08-22 17:22] MED LIST changes: +CINA30TA7 PO; -FURO-150 PO; -IPRA3AMP31 IH; -NEBU1KIT3 MC
[2023-08-22 17:31] VITALS: BP 136/103; PULSE 70; RESP 16; TEMP 97.6; O2SAT 96
[2023-08-22] MEDS ORDERED: NAPR-56 PO (19:38)
== END 2023-08-22 19:44 | disposition home or self-care (01) ==
LOC: ER 17:23
DX: S60.212A Contusion of left wrist, initial encounter (principal); J44.9 Chronic obstructive pulmonary disease, unspecified; E11.9 Type 2 diabetes mellitus without complications; Z98.890 Other specified postprocedural states; Z88.0 Allergy status to penicillin; Z88.5 Allergy status to narcotic agent; Z88.8 Allergy status to other drugs, medicaments and biological substances; Z79.899 Other long term (current) drug therapy; W23.0XXA Caught, crushed, jammed, or pinched between moving objects, initial encounter; Y93.89 Activity, other specified; Y92.89 Other specified places as the place of occurrence of the external cause; Y99.8 Other external cause status
CPT/HCPCS: 73110; 99284

== ENCOUNTER 2024-03-04 14:07 | Emergency (ER) | payer MEDICARE, MEDICAID ==
[~2024-03-04] VITALS: Ht 165.1 cm; Wt 108.0 kg
[2024-03-04] MEDS: ketorolac trometh 15mg/ml vial 15 MG/ML ML IV ONE (15:39)
[2024-03-04 15:53] VITALS: BP 160/93; PULSE 71; RESP 16; TEMP 98; O2SAT 96
== END 2024-03-04 15:55 | disposition home or self-care (01) ==
LOC: ER 14:07
DX: S70.02XA Contusion of left hip, initial encounter (principal); E07.9 Disorder of thyroid, unspecified; E11.9 Type 2 diabetes mellitus without complications; G89.29 Other chronic pain; M54.9 Dorsalgia, unspecified; M19.90 Unspecified osteoarthritis, unspecified site; J44.9 Chronic obstructive pulmonary disease, unspecified; Z88.0 Allergy status to penicillin; Z88.5 Allergy status to narcotic agent; Z79.899 Other long term (current) drug therapy; Z87.442 Personal history of urinary calculi; Z90.49 Acquired absence of other specified parts of digestive tract; Z98.890 Other specified postprocedural states; Z60.2 Problems related to living alone; W18.09XA Striking against other object with subsequent fall, initial encounter; Y93.89 Activity, other specified; Y92.89 Other specified places as the place of occurrence of the external cause; Y99.8 Other external cause status
CPT/HCPCS: 73502; 96374; 99284; J1885